=== PATIENT | female | born 1945 | race Caucasian/White ===

== ENCOUNTER 2017-12-24 06:33 | Observation (INO) | payer OTHER ==
[~2017-12-24] VITALS: Ht 167.6 cm; Wt 72.6 kg
--- NOTE | ~2017-12-24 | P ---
[facility] [place] [address] PROCEDURE REPORT Name: REYNALDO GAGE Room #: 205-P [facility] M.RDeepika#: [id number] Admission: 12/24/17 Attend Phys: Galileo Perez MD Discharge: 12/25/17 Date of : 45 Report #: [id number] THIS REPORT FOR: //name// CC: FAM unknown MENDY DONAHUE Galileo Perez DATE OF SERVICE: 12/24/2017 HISTORY: The patient is a 72-year-old female with a history of palpitations and evidence of SVT on a cardiac exercise specialist, here for ablation. PROCEDURES PERFORMED: 1. Supraventricular tachycardia ablation, CPT code 51564. 2. Electrophysiology study with left atrial pacing and recording, CPT code 19149. 3. Program stimulation and pacing after IV drug infusion, CPT code 85152. 4. Intracardiac echocardiogram, CPT code 11709. 5. Transseptal puncture, CPT code 42094. ANESTHESIA: The patient underwent MAC anesthesia with no anesthesia related complications. DESCRIPTION OF PROCEDURE: The patient underwent informed consent. We discussed the details of the procedure including the risks, which include, but not limited to, bleeding, vascular damage, stroke, ME as well as cardiac perforation. She understood these risks and is willing to proceed. The patient was brought to the EP laboratory in a fasting and unsedated state and prepped and draped in a sterile fashion. I obtained access to the bilateral femoral veins placing an 8 and 6-[place] short sheath in the right femoral vein and a 6 and 7-[place] short sheath in the left femoral vein. Under fluoroscopy, I placed 3 quadripolar catheters at the HRA, His, and RV positions and a decapolar catheter into the coronary sinus. At baseline, the patient was in sinus rhythm with a sinus cycle length of 905 milliseconds, TX interval 175 milliseconds, QRS duration 75 milliseconds, QT interval 395 milliseconds, AH interval 97 milliseconds, and HV interval of 54 milliseconds. Next, atrial burst pacing was performed and AV block was noted at 380 milliseconds. AV node ERP was noted 290 milliseconds to [address] cycle length. Then, ventricular pacing was performed and there was no evidence of VA conduction. Isoproterenol infusion was started at 1 mcg per minute. AV block was noted at 320 milliseconds. With burst pacing, the patient went into supraventricular tachycardia with a tachycardia cycle length of 390 milliseconds. There was a high to low activation sequence and there was a vertical activation along the [facility] [address] [place] [address] PROCEDURE REPORT Name: REYNALDO GAGE Room #: 205-P [facility] SarahiR.#: [id number] Admission: 12/24/17 Attend Phys: Galileo Perez MD Discharge: 12/25/17 Date of : 45 Report #: [id number] coronary sinus. 3D mapping and ablation: Next, I placed a [employer] Flores 4 mm ablation catheter into the right atrium and we created a 3D geometry of this arrhythmia. The map demonstrated that it was arising from what appeared to be the interatrial septum. It appeared that it was about 15 mm above the His. Given this activation sequence, I thought that this tachycardia may be arising from the left atrium. Therefore, the patient was prepped for a transseptal. We placed a 9-[place] short sheath into the left femoral vein and placed an ice catheter into the right atrium. I created a detailed 3D geometry of the left atrium using [employer]. The patient was systemically heparinized and a transseptal was performed using an SL1 sheath and a [place] needle. Using a [employer] Flores Lasso catheter, we created an activation MAP in the left atrium as well. This also mapped to the interatrial septum. It was clearly not arising from either the left atrial appendage or either of the pulmonary veins. Comparing the earliest sites, it appeared that the earliest site was on the right side of the septum. Therefore, we decided to ablate from this location. Ablation was performed at 40 pavon and 55 degrees and we were careful to ensure that we stayed away from the His bundle. We performed several ablation lesions in this area where there would be bursts of tachycardia and then it would slow. However, after several gagnon, this tachycardia was easily reinduced and therefore, we remapped it again and it appeared that it was slightly above the His cloud. Given its proximity to the His, I decided against further ablation. Of note, the patient also had some other atrial arrhythmias that were induced. There were potentially 2 or 3 other atrial flutters that we could induce. One of them had a distal to proximal activation along the CS that I could not entrain that had a cycle length of 310 milliseconds. Therefore, the fact that the patient had multiple different atrial arrhythmias and the dominant arrhythmia was very close to the His bundle, I thought that attempting medical therapy at this point would probably be the best option. Therefore, no further ablation was performed. Isoproterenol was discontinued. Post ablation, the patient remained in sinus rhythm with a sinus cycle length of 566 milliseconds, AH interval of 127 milliseconds and HV interval of 42 milliseconds. As such, the patient received systemic protamine. Once the ACT was within acceptable range, all catheters and sheaths were pulled. Hemostasis was obtained. The patient awoke neurologically and hemodynamically intact. There were no complications. CONCLUSIONS: 1. Unsuccessful ablation of an atrial tachycardia that appeared to be arising just superior to the His bundle region. 2. Multiple atypical atrial flutter circuit noted. 3. Normal sinoatrial jose function. 4. Normal atrioventricular jose function. [facility] [address] [place] [address] PROCEDURE REPORT Name: REYNALDO GAGE Room #: 205-P [facility] M.R.#: [id number] Admission: 12/24/17 Attend Phys: Galileo Perez MD Discharge: 12/25/17 Date of : 45 Report #: [id number] 5. Normal His-Purkinje function. 6. No other inducible arrhythmias on or off isoproterenol. By: [id number] Galileo Perez MD /nt
--- NOTE | ~2017-12-24 | D ---
[facility] [place] [address] DISCHARGE SUMMARY Name: REYNALDO GGAE Room #: 205-P [facility] M.RDeepika#: [id number] Admission: 12/24/17 Attend Phys: Galileo Perez MD Discharge: 12/25/17 Date of : 45 Report #: [id number] THIS REPORT FOR: //name// CC: FAM unknown MENDY RAGSDALETRAVONBharat Galileo Perez DATE OF SERVICE: 12/25/2017 DISCHARGE DIAGNOSES: 1. Atrial tachycardia. 2. Atrial flutter. PROCEDURE PERFORMED: SVT ablation. HISTORY: The patient is a 72-year-old with a history of palpitations, recent evaluation in the Emergency Room for shortness of breath. She recently wore shelter monitor showing frequent episodes of SVT. She is here for SVT ablation. She was brought in and was found to have a focal atrial tachycardia as well as multiple other atrial arrhythmias including a possible left-sided flutter. The dominant rhythm was the initial atrial tachycardia that was induced and was mapped to the interatrial septum of the atria. I mapped it both on the right and left sides and it was clearly coming from the septum. Attempts at ablation at the septum did not result in elimination of the tachycardia. This was remapped and was found to be slightly closer to the His region. Given the proximity to His, further ablation was not performed. HOSPITAL COURSE: The patient was monitored in the hospital overnight. She did have some runs of this atrial tachycardia. These appeared to stop once she was started on flecainide 50 twice a day and Toprol 25 mg a day. Overnight, she did well with no issues. She denied chest pain or shortness of breath. On exam, heart was regular rate and rhythm. Lungs were clear to auscultation bilaterally and the bilateral groin showed no significant bruising or hematoma. As such, she was deemed stable for discharge home. She will be discharged on flecainide 50 b.i.d. as well as Toprol 25 mg a day. She will continue her other home medications including her lisinopril. She will follow up with me in 1 month. <ELECTRONICALLY SIGNED> By: Galileo Perez MD 01/14/18 [id number] Galileo Perez MD /nt
[2017-12-24 07:14] VITALS: BP 172/92
[2017-12-24 07:21] LABS: ABSOLUTE NEUTROPHILS 4.2 thou/uL (1.4-8.2); BASOPHILS 0.4 % (0.0-2.0); EOSINOPHILS 2.9 % (0.0-3.0); HEMOGLOBIN 13.3 gm/dL (12.0-15.0); LYMPHOCYTES 21.1 % (24.0-44.0); MCH 31.5 pg (26.0-34.0); MCHC 33.2 g/dL (28.0-37.0); MCV 94.6 fL (80.0-100.0); MONOCYTES 5.9 % (1.0-8.0); PLATELET COUNT 215 thou/uL (150-400); POLYS 69.7 % (36.0-66.0); RBC 4.23 mil/uL (4.20-5.00); RDW 14.3 % (10.5-14.5); WBC 6.1 thou/uL (4.0-11.0)
[2017-12-24] MEDS ORDERED: VITAMIN C500 M2 PO (07:30)
[2017-12-24] MEDS ORDERED: CALCIUM + D3 E1 EACH PO (07:31)
[2017-12-24] MEDS ORDERED: COENZYME Q10100 MG PO (07:32)
[2017-12-24] MEDS ORDERED: SYNTHROID100 MC1 PO (07:32)
[2017-12-24] MEDS ORDERED: ZESTRIL10 MG PO (07:33)
[2017-12-24] MEDS ORDERED: ATIVAN0.5 MG PO (07:34)
[2017-12-24 07:35] LABS: APTT 28.4 Seconds (24.5-32.8); PROTIME 9.8 Seconds (9.3-11.4)
[2017-12-24] MEDS ORDERED: MOBIC15 MG PO (07:35)
[2017-12-24] MEDS ORDERED: A THRU Z SELEC1 EAC6 PO (07:35)
[2017-12-24] MEDS ORDERED: ZOCOR20 MG PO (07:37)
[2017-12-24] MEDS ORDERED: ZANTAC 150MG T150 MG PO (07:37)
[2017-12-24 07:42] LABS: CALCIUM 9.1 mg/dL (8.5-10.1); CREATININE 0.9 mg/dL (0.6-1.0); POTASSIUM 3.4 mmol/L (3.5-5.1)
[2017-12-24 07:47] LABS: ALBUMIN 3.9 g/dL (3.4-5.0); TOTAL BILIRUBIN 0.5 mg/dL (<0.1-1.0); TOTAL PROTEIN 7.9 g/dL (6.4-8.2)
[2017-12-24 13:45] VITALS: BP 168/91
[2017-12-24 16:00] VITALS: BP 171/84
[2017-12-24 20:25] VITALS: BP 123/62
[2017-12-25 00:02] VITALS: BP 128/60
[2017-12-25 07:50] VITALS: BP 135/67
[2017-12-25] MEDS ORDERED: FLECAINIDE ACET50 M2 PO (08:33)
[2017-12-25] MEDS ORDERED: METOPROLOL SUCC25 M1 PO (08:34)
[2017-12-25 09:18] VITALS: BP 135/67
[2017-12-25 12:24] VITALS: BP 135/67
== END 2017-12-25 09:44 | disposition home or self-care (01) ==
LOC: CATH 06:33 → 2N 13:46 → CATH 16:54 → 2N 12-25 09:44
PROVIDERS: Internal Medicine Cardiovascular Disease
DX: I47.1 Supraventricular tachycardia (principal); I48.92 Unspecified atrial flutter; R06.02 Shortness of breath
CPT/HCPCS: 62110; 62900; 70005

== ENCOUNTER → 2019-01-07 | Outpatient (CLI) | payer OTHER ==
[~2019-01-07] MED LIST: A THRU Z SELEC1 EAC6 PO; ATIVAN0.5 MG PO; CALCIUM + D3 E1 EACH PO; COENZYME Q10100 MG PO; FLECAINIDE ACET50 M2 PO; METOPROLOL SUCC25 M1 PO; MOBIC15 MG PO; SYNTHROID100 MC1 PO; VITAMIN C500 M2 PO; ZANTAC 150MG T150 MG PO; ZESTRIL10 MG PO; ZOCOR20 MG PO
== END ==
LOC: ULTRA 09:56
DX: I10 Essential (primary) hypertension (principal)

== ENCOUNTER → 2020-01-28 | Outpatient (CLI) | payer OTHER | LOC: SJCVCIMAG 09:18 | PROVIDERS: ATTEND Internal Medicine Cardiovascular Disease | DX: I48.91 Unspecified atrial fibrillation (principal); R00.1 Bradycardia, unspecified; I47.1 Supraventricular tachycardia; I10 Essential (primary) hypertension; E78.5 Hyperlipidemia, unspecified; Z79.899 Other long term (current) drug therapy ==

== ENCOUNTER → 2020-07-27 | Outpatient (CLI) | payer OTHER | LOC: SJCVC 11:07 | PROVIDERS: ATTEND Internal Medicine Cardiovascular Disease | DX: R00.1 Bradycardia, unspecified (principal); I47.1 Supraventricular tachycardia; I48.92 Unspecified atrial flutter; I10 Essential (primary) hypertension; E78.5 Hyperlipidemia, unspecified; Z90.49 Acquired absence of other specified parts of digestive tract; Z90.710 Acquired absence of both cervix and uterus; Z98.890 Other specified postprocedural states; Z79.899 Other long term (current) drug therapy; Z82.49 Family history of ischemic heart disease and other diseases of the circulatory system ==

== ENCOUNTER → 2021-01-27 | Outpatient (CLI) | payer OTHER | LOC: SJCVC 13:25 | PROVIDERS: ATTEND Internal Medicine Cardiovascular Disease | DX: I47.1 Supraventricular tachycardia (principal); I10 Essential (primary) hypertension; I48.91 Unspecified atrial fibrillation; E78.5 Hyperlipidemia, unspecified; Z79.82 Long term (current) use of aspirin; Z79.899 Other long term (current) drug therapy ==